=== PATIENT | male | born 1945 | race Caucasian/White ===

== ENCOUNTER 2017-05-07 14:23 | Emergency (ER) | payer MEDICARE, OTHER ==
[~2017-05-07] VITALS: Ht 193 cm; Wt 90.5 kg
[~2017-05-07 14:23] MED LIST: ATOR20TA42 PO; GLIP10TA6 PO; LISI-360 PO; METF500 PO; TRAD5TAB PO
[2017-05-07 14:24] VITALS: BP 188/86; PULSE 79; RESP 18; TEMP 98.9; O2SAT 98
--- NOTE | 2017-05-07 14:51 | PD ---
Physical Exam Time Seen by Provider: 14:48 Narrative 72yo M c/o flesh eating bacteria to R groin area and needs dressing change. Was dc last night from [facility] w/o care being set up and needs the dressing repacked and changed. Suppose to be changed TID and has not been changed since yesterday at 3pm. Patient seen in triage. VS reviewed. Awaiting bed placement. Data Data Last Documented VS Vital Signs Date Time Temp Pulse Resp B/P Pulse Ox O2 Delivery O2 Flow Rate FiO2 05/07/17 14:24 98.9 79 18 188/86 98 Room Air MDM Supervised Visit with ELIAS: Elin Gutiérrez May 07, 2017 14:50
--- NOTE | 2017-05-07 16:10 | PD ---
HPI . Dressing change Chief Complaint: Skin Problem Time Seen by Provider: 15:47 Travel History International Travel<30 days: No Contact w/Intl Traveler<30days: No Traveled to known affect area: No History of Present Illness HPI Patient presents for a dressing change. The patient reports that he was discharged from [facility] yesterday for necrotizing fasciitis in his right groin. He states that he was taken to the operating room for this on either or Friday which would have been either May 01 or . He then had dressing changes done 3 times a day. He was subsequently discharged yesterday and he states that he was supposed to have home health 3 times a day for dressing changes. He states that they have not calmed today and he is concerned that the dressing needs to be changed. He subsequently presented to us for treatment. He denies any symptoms. He is not running a fever. He is not sick to his stomach. He reports very little pain associated with the surgery. He states that he has not been taking any prescription pain medication. His only complaint is that he needs to have his dressing changed. 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) Hepatitis: No Hiatal Hernia: No Immune Disorder: No Musculoskeletal: Yes (ARTHRITIS) Neurologic: Yes (NEUROPATHY JESSY LEGS/ FEET) Psychiatric: No Respiratory: No Thyroid Disease: No Past Surgical History Abdominal Surgery: Yes (CHOLECYSTECTOMY, PARTIAL COLECTOMY, CLOSURE OF OSTOMY) AICD: No Body Medical Devices: PROSTATE SEEDS Cardiac Surgery: No Ear Surgery: No Endocrine Surgery: No Eye Surgery: Yes (LEFT CATARACT EXTRACT.) Genitourinary Surgery: Yes (PROSTATE BIOPSY ) Joint Replacement: No Oral Surgery: No Pacemaker: No Thoracic Surgery: No Social History Tobacco Use: No Substance Use: Yes (MARIJUANA) Allergies-Medications (Allergen,Severity, Reaction): Coded Allergies: No Known Allergies (Unverified , 06/30/14) Reported Meds & Prescriptions Reported Meds & Active Scripts Active Reported Lipitor (Atorvastatin Calcium) 20 Mg Tab 20 Mg PO DAILY Tradjenta (Linagliptin) 5 Mg Tab 5 Mg PO DAILY Glipizide 10 Mg Tab 20 Mg PO BID TAKE BEFORE MEALS Glucophage (Metformin HCl) 500 Mg Tab 1,000 Mg PO BID Lisinopril 10 Mg Tab 10 Mg PO DAILY Review of Systems Except as stated in HPI: all other systems reviewed are Neg General / Constitutional: No: Fever, Chills Skin: Positive Other (wound in the right groin) Physical Exam Narrative GENERAL: Awake and alert and in no acute distress. SKIN: Warm and dry. He has a large, open surgical wound in the right groin. The surrounding skin is not red or hot. There is granulation tissue in the base of the wound. HEAD: Atraumatic. Normocephalic. EYES: Pupils equal and round. NECK: Trachea midline. CARDIOVASCULAR: Regular rate and rhythm. RESPIRATORY: No accessory muscle use. MUSCULOSKELETAL: No obvious deformities. No edema. NEUROLOGICAL: Awake and alert. No obvious cranial nerve deficits. Motor grossly within normal limits. Normal speech. PSYCHIATRIC: Appropriate mood and affect; insight and judgment normal. Data Data Last Documented VS Vital Signs Date Time Temp Pulse Resp B/P Pulse Ox O2 Delivery O2 Flow Rate FiO2 05/07/17 14:24 98.9 79 18 188/86 98 Room Air [facility] Medical Decision Making Medical Screen Exam Complete: Yes Emergency Medical Condition: Yes Differential Diagnosis My differential diagnosis of a wound check includes but is not limited to normal healing, delayed healing, localized wound infection, cellulitis, sepsis Narrative Course Patient presents for dressing change, right groin. He had recent necrotizing fasciitis which was treated surgically at an outside hospital. Vital Signs Date Time Temp Pulse Resp B/P Pulse Ox O2 Delivery O2 Flow Rate FiO2 05/07/17 14:24 98.9 79 18 188/86 98 Room Air His wound does not look infected. He does not have any signs or symptoms worrisome for sepsis. His wound will be re-packed and dressed and he will be discharged to home. The employment case manager has spoken with the patient to ensure that arrangements are made for him to be treated as an outpatient at home. Diagnosis Primary Impression: Encounter for wound care Med/Other Pt SpecificInfo: No Change to Meds Disposition: 01 DISCHARGE HOME Condition: Stable Domenica Pardo MD May 07, 2017 16:10
== END 2017-05-07 17:53 | disposition home or self-care (01) ==
LOC: NEPD 14:23
DX: M72.6 Necrotizing fasciitis (principal); Z48.01 Encounter for change or removal of surgical wound dressing; E11.9 Type 2 diabetes mellitus without complications; F12.90 Cannabis use, unspecified, uncomplicated
CPT/HCPCS: 99281